=== PATIENT | male | born 1945 | race Caucasian/White ===

== ENCOUNTER 2018-03-09 12:06 | Emergency (ER) | payer MEDICARE, OTHER ==
[~2018-03-09] VITALS: Ht 170.2 cm; Wt 90.6 kg
[2018-03-09 13:35] VITALS: BP 144/84
== END 2018-03-09 13:35 | disposition home or self-care (01) ==
LOC: ED 12:06
DX: R07.81 Pleurodynia (principal); W19.XXXA Unspecified fall, initial encounter